=== PATIENT | female | born 1955 | race Caucasian/White ===

== ENCOUNTER 2022-06-05 00:48 | Emergency (ER) | payer MEDICARE, MEDICAID ==
[~2022-06-05] VITALS: Ht 165.1 cm; Wt 75.0 kg
[~2022-06-05 00:48] MED LIST: ACET-812 PO; CLIN150C8 PO; IBUP-1985 PO
[2022-06-05 00:51] VITALS: BP 189/95
== END 2022-06-05 08:35 | disposition left against medical advice (07) ==
LOC: ER 00:49
DX: Z04.3 Encounter for examination and observation following other accident (principal); Z53.21 Procedure and treatment not carried out due to patient leaving prior to being seen by health care provider; W19.XXXA Unspecified fall, initial encounter; Y93.89 Activity, other specified; Y92.89 Other specified places as the place of occurrence of the external cause; Y99.8 Other external cause status